=== PATIENT | male | born 1955 | race Caucasian/White ===

== ENCOUNTER → 2018-10-29 | Outpatient (CLI) | payer OTHER ==
[~2018-10-29] MED LIST: ASPI81EC PO; ERGO400 PO; FEXO180 PO; FISH1000 PO; GEMF600 PO; IRBHYD300 PO; METF500 PO; MOMENI; MULVIT PO; SULTRIDS PO; TOCO400 PO
== END | disposition home or self-care (01) ==
LOC: PLD 08:14 → LAB SHORT 08:14
DX: D04.39 Carcinoma in situ of skin of other parts of face (principal); L57.8 Other skin changes due to chronic exposure to nonionizing radiation
CPT/HCPCS: 88305

== ENCOUNTER → 2020-05-20 | Outpatient (CLI) | payer SELFPAY ==
[2020-05-20 07:31] LABS: Source, Urine Clean Catch
[2020-05-20 12:01] LABS: Bacteria Few /hpf; Squamous Epithelial Cells Not Seen /hpf (Few)
[2020-05-20 12:02] LABS: Calcium Oxalate Crystals Many /hpf
== END | disposition home or self-care (01) ==
LOC: LAB SHORT 07:28 → LAB 07:28 → LAB FUT 05-18 15:55
PROVIDERS: Physician Assistant Surgical
DX: R31.29 Other microscopic hematuria (principal)
CPT/HCPCS: 81015

== ENCOUNTER → 2021-03-21 | Outpatient (CLI) | payer OTHER | END | disposition home or self-care (01) | LOC: LAB SHORT 11:36 | DX: L57.0 Actinic keratosis (principal); L82.1 Other seborrheic keratosis | CPT/HCPCS: 88305 ==

== ENCOUNTER 2021-04-13 06:14 | Day surgery (SDC) | payer OTHER ==
[~2021-04-13] VITALS: Ht 175.3 cm; Wt 89.4 kg
[2021-04-13] MEDS ORDERED: LORA10ER PO (06:48)
[2021-04-13] MEDS ORDERED: FIBER500 MG PO (06:48)
[2021-04-13] MEDS ORDERED: C COMPLEX1000 M1 PO (06:48)
[2021-04-13] MEDS ORDERED: ZINC15 PO (06:48)
[2021-04-13] MEDS ORDERED: TRULICITY0.75 MG/01 SQ (06:49)
[2021-04-13] MEDS ORDERED: JARDIANCE10 MG PO (06:50)
[2021-04-13] MEDS ORDERED: LISI5 PO (06:50)
[2021-04-13] MEDS ORDERED: TAMS.4ER PO (06:50)
[2021-04-13] MEDS ORDERED: AMLO5 PO (06:51)
== END 2021-04-13 08:55 | disposition home or self-care (01) ==
LOC: ORSCSDS 06:14
PROVIDERS: Podiatrist Foot & Ankle Surgery
PROC: 0QSR04Z Reposition Left Toe Phalanx with Internal Fixation Device, Open Approach (ICD-10-PCS; principal; 2021-04-13 07:30)
PROC: 0QBR0ZZ Excision of Left Toe Phalanx, Open Approach (ICD-10-PCS; principal; 2021-04-13 07:30)
DX: M21.612 Bunion of left foot (principal); M20.62 Acquired deformities of toe(s), unspecified, left foot; I10 Essential (primary) hypertension; E11.9 Type 2 diabetes mellitus without complications; Z79.84 Long term (current) use of oral hypoglycemic drugs; Z79.899 Other long term (current) drug therapy
CPT/HCPCS: 82947; A9270; C1713; J0171; J0690; J1100; J2250; J2405; J2704; J3010; J7120

== ENCOUNTER → 2022-04-17 | Outpatient (CLI) | payer OTHER ==
[~2022-04-17] MED LIST changes: +AMLO5 PO; +C COMPLEX1000 M1 PO; +FIBER500 MG PO; +JARDIANCE10 MG PO; +LISI5 PO; +LORA10ER PO; +TAMS.4ER PO; +TRULICITY0.75 MG/01 SQ; +ZINC15 PO
== END | disposition home or self-care (01) ==
LOC: LAB SHORT 14:41
DX: C44.319 Basal cell carcinoma of skin of other parts of face (principal)
CPT/HCPCS: 88305